=== PATIENT | male | born 1955 | race Caucasian/White ===

== ENCOUNTER 2020-01-09 06:08 | Day surgery (SDC) | payer MEDICARE, OTHER ==
[~2020-01-09] VITALS: Ht 180.3 cm; Wt 117.0 kg
[2020-01-09] MEDS ORDERED: PITA4TAB2 PO (07:02)
[2020-01-09] MEDS ORDERED: TAMS0.4C97 PO (07:02)
[2020-01-09] MEDS ORDERED: LOSA100T2 PO (07:02)
[2020-01-09] MEDS ORDERED: MULT-735 PO (07:02)
[2020-01-09] MEDS ORDERED: AMLO5TAB10 PO (07:02)
[2020-01-09] MEDS ORDERED: RANO10002 PO (07:02)
[2020-01-09] MEDS ORDERED: EZET10TA20 PO (07:02)
[2020-01-09] MEDS ORDERED: EMPA25TA PO (07:02)
[2020-01-09] MEDS ORDERED: CARV12.5 PO (07:02)
[2020-01-09] MEDS ORDERED: NITR0.4T22 SL (07:02)
[2020-01-09] MEDS ORDERED: FENO145T PO (07:02)
[2020-01-09] MEDS ORDERED: CLOP75TA PO (07:02)
[2020-01-09] MEDS ORDERED: METF500T16 PO (07:02)
[2020-01-09] MEDS ORDERED: VITA1TAB31 PO (07:02)
[2020-01-09] MEDS ORDERED: ASPI-630 PO (07:02)
[2020-01-09] MEDS ORDERED: BUPIVACAINE MPF 0.5% 30 ML VIAL. ONE (07:08)
[2020-01-09] MEDS ORDERED: LIDOCAINE 1% PF 30 ML VIAL. ONE (07:08)
[2020-01-09] MEDS ORDERED: IV RINGERS,LACTATED 1000ML 1,000 ML IV SCH (07:15)
[2020-01-09] MEDS ORDERED: INSULIN LISPRO 100 UNIT/ML 3ML VIAL for OP,RR ONLY. SQ PRN (07:15)
[2020-01-09] MEDS ORDERED: PROPOFOL 10 MG/ML (20ML) VIAL. IV ONE (07:25)
[2020-01-09] MEDS ORDERED: LIDOCAINE 2% PF 5 ML VIAL. ONE (07:25)
[2020-01-09] MEDS ORDERED: fentaNYL PF VIAL 100 MCG/2 ML VIAL ONE ×2 (07:26→09:57)
[2020-01-09] MEDS ORDERED: ceFAZolin 2GM PREMIX 2 GM/50 ML BAG IV ONE (08:00)
[2020-01-09] MEDS ORDERED: SEVOFLURANE 61 TO 120 MINUTES. IH ONE (08:01)
[2020-01-09] MEDS ORDERED: DEXAMETHASONE SOD PHOS 4 MG/ML VIAL ONE (08:01)
[2020-01-09] MEDS ORDERED: ONDANSETRON PF 4 MG/2 ML VIAL. ONE (08:01)
--- NOTE | 2020-01-09 09:31 | DISCH ---
DISCHARGE INSTRUCTIONS Condition on Discharge Condition on Discharge: Stable Activity After Discharge Activity Instructions for Disc: Other ROM activity Other activity instructions: Keep elevated, wiggle fingers Bathing Instructions: Shower-keep dressing dry Weight Bearing Status after Di: Non weight bearing Diet after Discharge Diet after Discharge: Regular Wound Incision Care Wound/Incision Care: Ice to area for comfort, Keep wound/cast CDI, Keep wound elevated, Do not change dressing Contacting the DR. after DC Call your doctor for: Concerns you may have Follow-Up Follow up with: Tima in 2 weeks NEDA SANDERSON II, MD January 09, 2020 09:31
--- NOTE | 2020-01-09 09:37 | PDOC4 ---
Operative Note Operative Note Date of procedure: 01/09/2020. Surgeon: Kenneth Sanderson Analytics Manager: Tin Pereira, certified medicine aide Preoperative diagnosis, close displaced extra-articular right distal radius f racture Postoperative diagnosis: Same Procedure performed: Open reduction internal fixation right distal radius fracture Anesthesia: General Complications: None Tourniquet time: 55 minutes Blood loss: 25 mL Components inserted: [employer] standard with volar distal radius locking plate Findings: Acute fracture Reason for procedure: Patient is a pleasant 64-year-old who injured his right wrist while trimming down a tree limb. He was seen in the emergency department, splinted and sent to my clinic. Please see my outpatient note for further details. We had a discussion of the risks, benefits, and alternatives and he wished to proceed. Description of procedure: Patient was greeted in the preoperative area by myself or the correct extremity was verified and marked. He was taken to the operative suite and antibiotics were started as he was brought back. Once in the opera ting room, he was transferred gently supine to the operating room table and secured to the bed with all pressure points padded after successful induction of a general anesthetic. The hand board was attached to the operating room table. Splint was taken down and a chlorhexidine pre-scrub was accomplished to his right upper extremity. We then applied a nonsterile tourniquet. Right upper extremity was then prepped and draped in the usual sterile fashion we conducted our standard preoperative timeout. I then palpated marked surface anatomy including the FCR tendon and radial artery. I chiara a line from a standard volar Daniel approach. Extremity was then exsanguinated with an Esmarch and tourniquet insufflated to 250 mmHg. I then incised skin with a scalpel and dissected subcutaneous tissue with tenotomy's, using bipolar electrocautery for hemostasis. After accomplishing this, identified the fascia and FCR tendon and incised fascia on the radial aspect of the FCR tendon. I then bluntly spread down to the pronator quadratus and released this with electrocautery. I then used a periosteal elevator to expose the volar distal radius in anticipation of my plate application. After this, his dental pick at the fracture site and a metal tip suction device as well to clean out the early hematoma. I then pulled traction, extension and direct digital pressure over the fracture site and then pinned into position confirming better alignment on biplanar fluoroscopy. I then held my plate against the bone, the plate set well and was quite flush where we had a position. I then provisionally pinned the plate in position, checked my alignment and hardware position on fluoroscopy and then placed nonlocking screws into the distal column of the plate, using liberal fluoroscopy to ensure extra-articular placement. I then placed 3 more locking screws. After this, I secured the plate to the bone while an marketing operations assistant pulled traction to help facilitate better reduction, the plate was able to be advanced and then I fully tightened the screw and then placed 2 more nonlocking screws proximal to the fracture site. We then took our final images. After this, the operative field was thoroughly irrigated out with sterile fluid. Tourniquet was let down, there was some venous oozing at the skin edge and from the fracture site but overall the operative field was dry. I then reapproximated pronator quadratus with [id number] 2-0 Vicryl. Inverted interrupted 2-0 Vicryl was used in subcutaneous tissue and 3-0 nylon in a mattress fashion for skin. A local anesthetic mixture was injected in the michelle-incisional soft tissues. Prior to wound closure, all counts correct x2. No complications. At the conclusion, the arm and hand were cleansed and dried and the patient was placed into a sugar t pedro splint. He tolerated surgery well. At the conclusion, he was awakened and transferred gently supine to the recovery room cart and taken to PACU in stable and extubated condition. Postoperative plan is to discharge him home, nonweightbearing, postoperative instructions discussed with he and his as well as given in written form. I will see him back in 2 weeks, sooner should a problem arise KENNETH SANDERSON II, MD January 09, 2020 09:37
[2020-01-09] MEDS: fentaNYL PF VIAL 100 MCG/2 ML VIAL IVP PRN ×2 (10:00→10:05)
[2020-01-09] MEDS ORDERED: OXYC1TAB15 PO (10:04)
[2020-01-09] MEDS ORDERED: oxyCODONE/APAP 5/325 1 TAB TABLET PO ONE (10:15)
[2020-01-09 10:25] VITALS: BP 152/81
== END 2020-01-09 11:25 | disposition home or self-care (01) ==
LOC: SURG 06:08
PROVIDERS: ATTEND Orthopaedic Surgery Sports Medicine
DX: S52.551A Other extraarticular fracture of lower end of right radius, initial encounter for closed fracture (principal); I10 Essential (primary) hypertension; E66.9 Obesity, unspecified; E78.00 Pure hypercholesterolemia, unspecified; Z88.8 Allergy status to other drugs, medicaments and biological substances; Z79.82 Long term (current) use of aspirin; Z79.899 Other long term (current) drug therapy; Z79.84 Long term (current) use of oral hypoglycemic drugs; Z68.35 Body mass index [BMI] 35.0-35.9, adult; Z86.73 Personal history of transient ischemic attack (TIA), and cerebral infarction without residual deficits; Z98.890 Other specified postprocedural states; Z87.891 Personal history of nicotine dependence; Y92.89 Other specified places as the place of occurrence of the external cause; Y99.8 Other external cause status; X58.XXXA Exposure to other specified factors, initial encounter
CPT/HCPCS: 25607; 76000; 82962; A7015; C1713; J0696; J1100; J2405; J2704; J3010; J3490